=== PATIENT | female | born 1975 | race Caucasian/White ===

== ENCOUNTER 2024-11-27 00:20 | Outpatient (CLI) | payer SELFPAY ==
--- NOTE | 2024-11-27 15:15 | DI.MAMMO_ITS ---
Exam(s) MAMMO SCREENING EXAM: MAMMO SCREENING CLINICAL HISTORY: screening TECHNIQUE: Bilateral full field digital CC and MLO mammographic images were obtained with 3D tomosynthesis and utilizing computer aided detection (CAD). COMPARISON: This is a baseline examination. FINDINGS: Masses/Architectural Distortion: There is a well-circumscribed 6 mm nodule in the central upper left breast 9 cm from the nipple. Microcalcifications: There is a collection of calcifications seen in the retroareolar region of the left breast. These should be further evaluated. Skin Thickening/Nipple Retraction: None. IMPRESSION: 1. Calcifications in the retroareolar region of the left breast. Magnification views should be obtained for further evaluation. 2. 6 mm left breast nodule. Spot compression views are requested for further evaluation. 3. Ultrasound may be indicated at that time. BI-RADS Category 0 - Incomplete: Need additional imaging evaluation Breast Density - Category C - The breast are heterogeneously dense, which may obscure small masses. Breast density Category C or D implies that the patient has dense breast tissue. Dense breast tissue can make it harder to find cancer on a mammogram. Dense breast tissue is also associated with an increased risk of breast cancer. This information about the result of the mammogram report was provided to the patient to raise their awareness. Use this report when you speak with the patient about their risks for breast cancer, which includes their family history. At that time, you may recommend additional screening tests (Ultrasound or MRI) as these tests may add significant information. A negative radiographic report should not delay biopsy if a dominant or clinically suspicious mass is present. Up to ten percent of cancers are not identified on mammography. A negative report may reinforce clinical impression. Adenosis and dense breasts may obscure an underlying neoplasm. False positive reports average 6 to 10%. Patient will receive a letter notifying them of these results.
== END 2024-11-27 00:40 ==
LOC: DI 00:20
PROVIDERS: PCP Family Medicine; Visit Provider Obstetrics & Gynecology
DX: Z12.31 Encounter for screening mammogram for malignant neoplasm of breast (principal)
CPT/HCPCS: 77063; 77067

== ENCOUNTER 2024-12-04 10:42 | Outpatient (REF) | payer SELFPAY ==
--- NOTE | 2024-12-04 10:15 | PAPFT_PTH ---
PATIENT: Jeanne Russell LOC: [facility] U#:[id number] AGE/SX: 49/F ROOM: RE12/04/[address]: Greer Conn MD : [id number] BED: DIS: 12/04/2024 SPEC #: [id number] RECD: 12/04/24 13:09 STATUS: KAVON RETish #: [id number] NOLA: 12/04/24 10:[address]: Greer Conn DEPT: [facility] Cytology RECD BY: Ngoc Marmolejo ENTERED: 12/04/24 13:09 SP TYPE: PAPFT OTHR DR: Jacob Guerrero Tissues: 1 - CX/ENDOCX FOR PAP SMEARS Procedures: PAP THIN PREP/[facility] Screening HPV DNA PROBE Comments: [id number] (HPV 16 & 18/45)
== END 2024-12-04 10:43 | disposition home or self-care (01) ==
LOC: LBN 10:42
PROVIDERS: PCP Family Medicine; Visit Provider Obstetrics & Gynecology
DX: Z12.4 Encounter for screening for malignant neoplasm of cervix (principal)
CPT/HCPCS: 88142; 87624

== ENCOUNTER 2024-12-05 00:36 | Outpatient (CLI) | payer SELFPAY ==
--- NOTE | 2024-12-05 | DI.US_ITS ---
Exam(s) MG MAMMO SCREEN CALL BACK UNI US BREAST LT COMPLETE EXAM: MG MAMMO SCREEN CALL BACK UNI CLINICAL HISTORY: CALCIFICATIONS RETROAREOLAR REGION LT BREAST 6MM NODULE R92.8 ABNL MAMMO. TECHNIQUE: Craniocaudal and mediolateral oblique spot compression digital Mammography views as well as spot magnification views of the leftbreast with Tomosynthesis and left breast ultrasound. COMPARISON: MG MG MAMMO SCREENING from 11/27/2024 US US BREAST LT COMPLETE from 12/05/2024 FINDINGS: Mammography/Tomosynthesis: Masses: Persistent 6 millimeters circumscribed nodule. Architectural Distortion: None seen. Microcalcifictions: No suspicious pleomorphic-type are seen. Coarse, benign calcifications are noted in the anterior left breast. Skin Thickening/Nipple Retraction: None. Left breast US: Echotexture: Normal appearance of the glandular tissue. Shadowing: No suspicious foci. Cyst: 6 millimeter cyst 12 o'clock position 5 cm from the nipple. Solid lesions: None seen. Ductal dilation: None. IMPRESSION: 1. No evidence of malignancy is noted. 2. Unless there is more urgent need, follow-up screening mammography is recommended, as per [place] [employer] guidelines. 3. The findings were discussed with the patient on the date of the examination. BI-RADS Category 2 - Benign Findings Breast Density - Category C - The breast are heterogeneously dense, which may obscure small masses. Breast density Category C or D implies that the patient has dense breast tissue. Dense breast tissue can make it harder to find cancer on a mammogram. Dense breast tissue is also associated with an increased risk of breast cancer. This information about the result of the mammogram report was provided to the patient to raise their awareness. Use this report when you speak with the patient about their risks for breast cancer, which includes their family history. At that time, you may recommend additional screening tests (Ultrasound or MRI) as these tests may add significant information. A negative radiographic report should not delay biopsy if a dominant or clinically suspicious mass is present. Up to ten percent of cancers are not identified on mammography. A negative report may reinforce clinical impression. Adenosis and dense breasts may obscure an underlying neoplasm. False positive reports average 6 to 10%. Patient will receive a letter notifying them of these results.
== END 2024-12-05 00:56 ==
PROVIDERS: PCP Family Medicine; Visit Provider Obstetrics & Gynecology
DX: Z12.31 Encounter for screening mammogram for malignant neoplasm of breast (principal); R92.8 Other abnormal and inconclusive findings on diagnostic imaging of breast
CPT/HCPCS: 76642; 77063; 77067